=== PATIENT | female | born 1985 | race Caucasian/White ===

== ENCOUNTER 2017-10-31 21:10 | Emergency (ER) | payer SELFPAY ==
[~2017-10-31] VITALS: Ht 160 cm; Wt 108.0 kg
[~2017-10-31 21:10] MED LIST: DICL75 PO; IBUP600T26 PO; LISI-360 PO; PENI500T PO
[2017-10-31 21:25] VITALS: BP 185/113; PULSE 89; RESP 18; TEMP 98.7; O2SAT 100
[2017-10-31] MEDS ORDERED: TETANUS/DIPHTHERIA TOXOID ADULT 0.5 ML VIAL IM ONE (21:45)
[2017-10-31] MEDS ORDERED: CLIN150C14 PO (21:50)
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
[2017-10-31] MEDS ORDERED: CLINDAMYCIN 150 MG CAP PO ONE (22:00)
== END 2017-10-31 22:11 | disposition home or self-care (01) ==
LOC: NEPD 21:10
DX: L03.114 Cellulitis of left upper limb (principal); T22.212A Burn of second degree of left forearm, initial encounter; I10 Essential (primary) hypertension; Z23 Encounter for immunization; Z79.899 Other long term (current) drug therapy; X19.XXXA Contact with other heat and hot substances, initial encounter
CPT/HCPCS: 90471; 90714

== ENCOUNTER 2018-02-09 15:37 | Emergency (ER) | payer SELFPAY ==
[~2018-02-09] VITALS: Ht 160 cm; Wt 116.0 kg
[~2018-02-09 15:37] MED LIST changes: +CLIN150C14 PO
[2018-02-09 15:45] VITALS: BP 202/95; PULSE 87; RESP 16; TEMP 98.5; O2SAT 98
--- NOTE | 2018-02-09 16:16 | PD ---
HPI Chief Complaint: Injury Time Seen by Provider: 15:49 Travel History International Travel<30 days: No Contact w/Intl Traveler<30days: No Traveled to known affect area: No History of Present Illness HPI 32-year-old female presents to the ED for evaluation of right foot and ankle pain. She reports injury about a week and half ago. Per patient she stepped wrong on her foot. She has been having issues since. Per patient she did not think much of it as she thought it will get better but is been a week and a half and the symptoms are not improved at all. Pain is mostly to the lateral aspect of the foot and ankle. Related to the dorsal aspect. She denies any prior injuries. No numbness, tingling, weakness. Able to walk on it and the pain is 4/6 out of 10 but she is concerned because symptoms have not improved. She denies any new injury since the initial injury. She has not seen anybody for this. Not taken anything for this. Per patient the pain does get more severe in the morning and gets better as the day progresses. No pain to the plantar aspect. Most of the pain is to the dorsal aspect. PFSH Past Medical History Blood Disorders: No Cardiovascular Problems: Yes Diabetes: No Diminished Hearing: No Endocrine: No Genitourinary: No Hypertension: Yes Immune Disorder: No Implanted Vascular Access Dvce: No Musculoskeletal: No Neurologic: No Psychiatric: No Reproductive: No Respiratory: Yes (TB TEST SKIN POS - XRAY NEG - PUT ON MEDS) Immunizations Current: Yes Tetanus Vaccination: < 5 Years Influenza Vaccination: No PNEUMOCCOCAL Vaccine (Year): 2 ?: Not LMP: DUE NEXT WEEK : 0 Past Surgical History Surgical History: No Previous Surgery Other Surgery: No Social History Alcohol Use: No Tobacco Use: No Substance Use: No Allergies-Medications (Allergen,Severity, Reaction): Coded Allergies: No Known Allergies (Verified Adverse Reaction, Unknown, 02/09/18) Reported Meds & Prescriptions Reported Meds & Active Scripts Active No Active Prescriptions or Reported Medications Review of Systems Except as stated in HPI: all other systems reviewed are Neg Physical Exam Narrative GENERAL: SKIN: Warm and dry. HEAD: Atraumatic. Normocephalic. EYES: Pupils equal and round. No scleral icterus. No injection or drainage. ENT: No nasal bleeding or discharge. Mucous membranes pink and moist. Tongue is midline. No uvula deviation. NECK: Trachea midline. No JVD. CARDIOVASCULAR: Regular rate and rhythm. No murmurs, S3, S4. RESPIRATORY: No accessory muscle use. Clear to auscultation. Breath sounds equal bilaterally. GASTROINTESTINAL: Abdomen soft, non-tender, nondistended. Hepatic and splenic margins not palpable. MUSCULOSKELETAL: Extremities without clubbing, cyanosis, or edema. No obvious deformities. Full range of motion of the upper and lower extremities bilaterally. 2+ pulses bilaterally. Patient has full range of motion of the right foot and ankle. Minimal soft tissue swelling on the dorsal aspect of the foot and most of the pain producible on the lateral aspect of the foot and ankle. Good capillary refill. Sensation intact bilaterally. No obvious bony deformity noted. NEUROLOGICAL: Awake and alert. No obvious cranial nerve deficits. Motor grossly within normal limits. Five out of 5 muscle strength in the arms and legs. Normal speech. PSYCHIATRIC: Appropriate mood and affect; insight and judgment normal. Data Data Last Documented VS Vital Signs Date Time Temp Pulse Resp B/P (MAP) Pulse Ox O2 Delivery O2 Flow Rate FiO2 02/09/18 15:45 98.5 87 16 202/95 (130) 98 Orders Orders Ankle, Complete ([id number]) (02/09/18 15:56) Foot, Complete ([id number]) (02/09/18 15:56) [facility] Medical Decision Making Medical Screen Exam Complete: Yes Emergency Medical Condition: Yes Medical Record Reviewed: Yes Interpretation(s) xray of the right foot negative for acute disease per radiologist xray of the ankle negative for acute disease per radiologist. Differential Diagnosis Fracture versus sprain versus strain versus bruise versus contusion Narrative Course 32-year-old female that presents to the ED for evaluation of right foot injury. Patient was properly examined and was found to have signs and symptoms consistent with appears to be muscular skeletal discomfort. X-rays were ordered. X-ray showed no sign of acute bony injury. Patient was reassured. This appears to be bad sprain. At this time a recommend Alli wrap. Patient was given short prescription for the Copaxone for pain to use as needed. Close follow-up with PCP. See ED if worsening symptoms. Diagnosis Primary Impression: Foot sprain Qualified Codes: S93.601A - Unspecified sprain of right foot, initial encounter Patient Instructions: General Instructions Additional Instructions: Take medications as prescribed. Follow-up with PCP. See ED for any worsening symptoms. Apply ice or heat as needed for pain Med/Other Pt SpecificInfo: Prescription(s) given Scripts Diclofenac Sodium DR (Diclofenac Sodium DR) 75 Mg Tabdr 75 MG PO BID Y for PAIN SCALE 1 TO 10, #20 TAB 0 Refills Prov: Cristopher Headley MD 02/09/18 Disposition: 01 DISCHARGE HOME Condition: Satinder Alexis February 09, 2018 16:16
--- NOTE | 2018-02-09 16:21 | RADRPT ---
EXAM DATE/TIME: 02/09/2018 16:04 [facility] COMPARISON: No previous studies available for comparison. INDICATIONS : Right foot pain post fall at work one week ago MEDICAL HISTORY : None. SURGICAL HISTORY : None. ENCOUNTER: Initial ACUITY: 1 week PAIN SCORE: 5/10 LOCATION: Right entire foot FINDINGS: Three view examination of the right foot demonstrates no soft tissue swelling, dislocation, or fractu re. The tarsal bones appear intact. The interphalangeal and metatarsophalangeal joints are intact. The calcaneus is intact. Plantar calcaneal spurring. Calcaneonavicular osteophytes. Bony mineraliz ation is normal. CONCLUSION: 1. No acute fracture or dislocation. 2. Calcaneonavicular osteophytes and plantar calcaneal spurring. Maicol Mahmood MD on February 09, 2018 at 16:17 Board Certified Radiologist. This report was verified electronically.
--- NOTE | 2018-02-09 16:22 | RADRPT ---
EXAM DATE/TIME: 02/09/2018 16:07 [facility] COMPARISON: No previous studies available for comparison. INDICATIONS : Right ankle pain post fall at [employer] one week ago MEDICAL HISTORY : None. SURGICAL HISTORY : None. ENCOUNTER: Initial ACUITY: 1 week PAIN SCORE: 5/10 LOCATION: Right entire ankle FINDINGS: Three view exam was performed of the right ankle. The bony structures are in normal alignment. No e vidence of fracture, dislocation, or soft tissue swelling. The ankle mortise is intact. No radiopaq ue foreign bodies are seen. Bony mineralization is normal. CONCLUSION: 1. No acute fracture or dislocation. Maicol Mahmood MD on February 09, 2018 at 16:19 Board Certified Radiologist. This report was verified electronically.
[2018-02-09] MEDS ORDERED: DICL75TA PO (16:25)
== END 2018-02-09 16:34 | disposition home or self-care (01) ==
LOC: PHEFT 15:37
DX: S93.601A Unspecified sprain of right foot, initial encounter (principal); I10 Essential (primary) hypertension; W22.8XXA Striking against or struck by other objects, initial encounter
CPT/HCPCS: 73610; 73630; 99283